=== PATIENT | female | born 1955 | race Caucasian/White ===

== ENCOUNTER 2019-09-22 08:49 | Emergency (ER) | payer OTHER ==
--- NOTE | 2019-09-22 10:24 | ER ---
Nurse's Notes [facility] Name: Bety Mejia Age: 64 yrs Sex: Female : 1955 Arrival Date: 09/22/2019 Time: 08:51 Bed 16 Private MD: Diagnosis: Acute pharyngitis Presentation: 09/22 09:09 Presenting complaint: Patient states: FEVER, SORE THROAT x2 DAYS. Transition of care: bp patient was not received from another setting of care. Onset of symptoms is unknown. Risk Assessment: Do you want to hurt yourself or someone else? Patient reports no desire to harm self or others. Initial Sepsis Screen: Does the patient meet any 2 criteria? No. Patient's initial sepsis screen is negative. Does the patient have a suspected source of infection? No. Patient's initial sepsis screen is negative. Care prior to arrival: None. 09:09 Method Of Arrival: Ambulatory bp 09:09 Acuity: MABEL 4 bp Triage Assessment: 09:12 General: Appears in no apparent distress. comfortable, Behavior is calm, cooperative, bp appropriate for age. Pain: Complains of pain in neck. EENT: LYMPHADENOPATHY. Neuro: No deficits noted. Cardiovascular: No deficits noted. Respiratory: No deficits noted. GI: No signs and/or symptoms were reported involving the gastrointestinal system. : No signs and/or symptoms were reported regarding the genitourinary system. Derm: No deficits noted. Musculoskeletal: No deficits noted. Historical: - Allergies: 09:12 Codeine; bp - Home Meds: 09:12 flecainide oral oral [Active]; Metoprolol Tartrate Oral [Active]; Hydrochlorothiazide bp Oral [Active]; Xarelto oral oral [Active]; - PMHx: 09:12 Atrial Fib; Hypertension; bp - Immunization history:: Adult Immunizations up to date. - Social history:: Smoking status: Patient/guardian denies using tobacco. - Ebola Screening: : No symptoms or risks identified at this time. Screenin:14 Abuse screen: Denies threats or abuse. Denies injuries from another. Nutritional bp screening: No deficits noted. Tuberculosis screening: No symptoms or risk factors identified. Fall Risk None identified. Assessment: 09:14 General: SEE TRIAGE NOTE. bp 10:48 Reassessment: PT D/C HOME AMBULATORY, DX WITH ACUTE PHARYNGITIS. bp Vital Signs: 09:12 BP 114 / 76; Pulse 59; Resp 16; Temp 97.6; Pulse Ox 100% ; Weight 83.01 kg; Height 5 bp ft. 5 in. (165.10 cm); 10:32 BP 119 / 73; Pulse 65; Resp 17; Temp 98.5; Pulse Ox 100% ; bp 09:12 Body Mass Index 30.45 (83.01 kg, 165.10 cm) bp ED Course: 08:51 Patient arrived in ED. as 08:54 [facility]izar[facility]C [facility]. snw 08:54 Jc Aleman MD is Attending Physician. snw 08:56 Gustavo Arias, RN is Primary Nurse. bp 09:10 Triage completed. bp 09:12 Arm band placed on. bp 09:14 Patient has correct armband on for positive identification. Bed in low position. Call bp light in reach. Side rails up X2. 10:23 Throat Culture Sent. bp 10:49 No provider procedures requiring assistance completed. Patient did not have IV access bp during this emergency room visit. Administered Medications: 10:30 Drug: TORadol 30 mg Route: IM; Site: right gluteus; bp 10:50 Follow up: Response: No adverse reaction bp Outcome: 10:24 Discharge ordered by . snw 10:49 Patient left the ED. ss 10:49 Discharged to home ambulatory. bp 10:49 Condition: stable 10:49 Discharge instructions given to patient, Instructed on discharge instructions, follow up and referral plans. Demonstrated understanding of instructions, follow-up care. Signatures: Angy Pizarro FNP-C FNP-Milvia Pro Shelby, RN RN ss Gustavo Arias, RN RN bp
--- NOTE | 2019-09-22 10:24 | EDPHYS ---
Physician Documentation [facility] Name: Bety Mejia Age: 64 yrs Sex: Female : 1955 Arrival Date: 09/22/2019 Time: 08:51 Bed 16 Private MD: ED Physician Jc Aleman HPI: 09/22 10:05 This 64 yrs old Female presents to ER via Ambulatory with complaints of Flu snw Symptoms. 10:05 Onset: The symptoms/episode began/occurred suddenly, 1 day(s) ago, and became snw persistent. It is unknown whether or not the patient has had similar symptoms in the past. It is unknown whether or not the patient has recently seen a physician. Historical: - Allergies: 09:12 Codeine; bp - Home Meds: 09:12 flecainide oral oral [Active]; Metoprolol Tartrate Oral [Active]; Hydrochlorothiazide bp Oral [Active]; Xarelto oral oral [Active]; - PMHx: 09:12 Atrial Fib; Hypertension; bp - Immunization history:: Adult Immunizations up to date. - Social history:: Smoking status: Patient/guardian denies using tobacco. - Ebola Screening: : No symptoms or risks identified at this time. ROS: 10:04 Eyes: Negative for injury, pain, redness, and discharge. snw 10:04 Cardiovascular: Negative for chest pain, palpitations, and edema, Respiratory: Negative for shortness of breath, cough, wheezing, and pleuritic chest pain, Abdomen/GI: Negative for abdominal pain, nausea, vomiting, diarrhea, and constipation, Back: Negative for injury and pain, : Negative for injury, bleeding, discharge, and swelling, MS/Extremity: Negative for injury and deformity, Skin: Negative for injury, rash, and discoloration, Neuro: Negative for headache, weakness, numbness, tingling, and seizure. 10:04 Constitutional: Positive for body aches, fever. 10:04 ENT: Positive for sore throat. 10:04 Neck: Positive for swollen nodes. Exam: 10:03 Head/Face: Normocephalic, atraumatic. Eyes: Pupils equal round and reactive to light, snw extra-ocular motions intact. Lids and lashes normal. Conjunctiva and sclera are non-icteric and not injected. Cornea within normal limits. Periorbital areas with no swelling, redness, or edema. Neck: Trachea midline, no thyromegaly or masses palpated, but positive anterior cervical lymphadenopathy. Supple, full range of motion without nuchal rigidity, or vertebral point tenderness. No Meningismus. Chest/axilla: Normal chest wall appearance and motion. Nontender with no deformity. No lesions are appreciated. Cardiovascular: Regular rate and rhythm with a normal S1 and S2. No gallops, murmurs, or rubs. Normal PMI, no JVD. No pulse deficits. Respiratory: Lungs have equal breath sounds bilaterally, clear to auscultation and percussion. No rales, rhonchi or wheezes noted. No increased work of breathing, no retractions or nasal flaring. Abdomen/GI: Soft, non-tender, with normal bowel sounds. No distension or tympany. No guarding or rebound. No evidence of tenderness throughout. Back: No spinal tenderness. No costovertebral tenderness. Full range of motion. Skin: Warm, dry with normal turgor. Normal color with no rashes, no lesions, and no evidence of cellulitis. MS/ Extremity: Pulses equal, no cyanosis. Neurovascular intact. Full, normal range of motion. Neuro: Awake and alert, GCS 15, oriented to person, place, time, and situation. Cranial nerves II-XII grossly intact. Motor strength 5/5 in all extremities. Sensory grossly intact. Cerebellar exam normal. Normal gait. Psych: Awake, alert, with orientation to person, place and time. Behavior, mood, and affect are within normal limits. 10:03 Constitutional: The patient appears alert, awake, non-toxic, well nourished. 10:03 ENT: TM's: are normal, Nose: is normal, Mouth: is normal, Posterior pharynx: erythema, that is moderate, Voice: is normal. Vital Signs: 09:12 BP 114 / 76; Pulse 59; Resp 16; Temp 97.6; Pulse Ox 100% ; Weight 83.01 kg; Height 5 bp ft. 5 in. (165.10 cm); 10:32 BP 119 / 73; Pulse 65; Resp 17; Temp 98.5; Pulse Ox 100% ; bp 09:12 Body Mass Index 30.45 (83.01 kg, 165.10 cm) bp MDM: 08:57 Patient medically screened. [facility] 10:24 Data reviewed: vital signs, nurses notes. Data interpreted: Pulse oximetry: on room air snw is 100 %. Interpretation: normal. Counseling: I had a detailed discussion with the patient and/or guardian regarding: the historical points, exam findings, and any diagnostic results supporting the discharge/admit diagnosis, lab results, the need for outpatient follow up, to return to the emergency department if symptoms worsen or persist or if there are any questions or concerns that arise at home. Special discussion: Based on the history and exam findings, there is no indication for further emergent testing or inpatient evaluation. I discussed with the patient/guardian the need to see the primary care provider for further evaluation of the symptoms. 09/22 09:07 Order name: Strep; Complete Time: 10:14 snw 09/22 09:07 Order name: Flu; Complete Time: 10:14 snw 09/22 10:08 Order name: Throat Culture EDMS Administered Medications: 10:30 Drug: TORadol 30 mg Route: IM; Site: right gluteus; bp 10:50 Follow up: Response: No adverse reaction bp Disposition: 16:39 Co-signature as Attending Physician, Jc Aleman MD I agree with the assessment and [facility] plan of care. Disposition: 09/22/19 10:24 Discharged to Home. Impression: Acute pharyngitis. - Condition is Stable. - Discharge Instructions: Pharyngitis, Rehydration, Adult. - Work release form, Medication Reconciliation Form, Thank You Letter, Antibiotic Education, Prescription Opioid Use form. - Follow up: Private Physician; When: 2 - 3 days; Reason: Recheck today's complaints, Continuance of care, Re-evaluation by your physician. Follow up: Emergency Department; When: As needed; Reason: Worsening of condition. Signatures: Dispatcher [employer] Jc Higginbotham MD MD cha Therrien, Shelly, GRAIN SACKER-C GRAIN SACKER-Naomiew Leyla Pascual RN RN ss Peltier, Brian, RN RN bp Corrections: (The following items were deleted from the chart) 10:05 10:03 Head/Face: Normocephalic, atraumatic. Eyes: Pupils equal round and reactive to snw light, extra-ocular motions intact. Lids and lashes normal. Conjunctiva and sclera are non-icteric and not injected. Cornea within normal limits. Periorbital areas with no swelling, redness, or edema. Neck: Trachea midline, no thyromegaly or masses palpated, and no cervical lymphadenopathy. Supple, full range of motion without nuchal rigidity, or vertebral point tenderness. No Meningismus. Chest/axilla: Normal chest wall appearance and motion. Nontender with no deformity. No lesions are appreciated. Cardiovascular: Regular rate and rhythm with a normal S1 and S2. No gallops, murmurs, or rubs. Normal PMI, no JVD. No pulse deficits. Respiratory: Lungs have equal breath sounds bilaterally, clear to auscultation and percussion. No rales, rhonchi or wheezes noted. No increased work of breathing, no retractions or nasal flaring. Abdomen/GI: Soft, non-tender, with normal bowel sounds. No distension or tympany. No guarding or rebound. No evidence of tenderness throughout. Back: No spinal tenderness. No costovertebral tenderness. Full range of motion. Skin: Warm, dry with normal turgor. Normal color with no rashes, no lesions, and no evidence of cellulitis. MS/ Extremity: Pulses equal, no cyanosis. Neurovascular intact. Full, normal range of motion. Neuro: Awake and alert, GCS 15, oriented to person, place, time, and situation. Cranial nerves II-XII grossly intact. Motor strength 5/5 in all extremities. Sensory grossly intact. Cerebellar exam normal. Normal gait. Psych: Awake, alert, with orientation to person, place and time. Behavior, mood, and affect are within normal limits. snw 10:49 10:24 09/22/2019 10:24 Discharged to Home. Impression: Acute pharyngitis. Condition is ss Stable. Forms are Medication Reconciliation Form, Thank You Letter, Antibiotic Education, Prescription Opioid Use. Follow up: Private Physician; When: 2 - 3 days; Reason: Recheck today's complaints, Continuance of care, Re-evaluation by your physician. Follow up: Emergency Department; When: As needed; Reason: Worsening of condition. snw
[2019-09-22] MEDS ORDERED: KETOROLAC 30 MG/ML INJ ONE (10:28)
[2019-09-22 10:58] VITALS: O2SAT 100
[2019-09-22 11:00] VITALS: BP 119/73; TEMP 98.5
== END 2019-09-22 10:49 | disposition home or self-care (01) ==
LOC: ER 08:49
DX: J02.9 Acute pharyngitis, unspecified (principal); Z88.6 Allergy status to analgesic agent; I10 Essential (primary) hypertension; I48.91 Unspecified atrial fibrillation
CPT/HCPCS: 87070; 87081; 87804; 96372; 99283